=== PATIENT | female | born 1970 | race Caucasian/White ===

== ENCOUNTER 2016-09-22 19:45 | Emergency (ER) | payer OTHER ==
--- NOTE | 2016-09-22 19:53 | PDOC ---
History of Present Illness - History of Present Illness Initial Comments: 09/22/16 20:14 The patient is a 46 year old female with a past medical hx of hypothyroidism and hypertension who presents to the ED complaining of pain to her right elbow for 1 week. The patient reports she slipped and fell down the stairs one week ago. She landed on her right elbow. She denies any radiation of pain, numbness, or tingling to her right upper extremity. She has no further complaints at this time. Pgu not done as patient reports there is no possible way she could be . PAST SURGICAL HISTORY: no significant history FAMILY HISTORY: no pertinent history MEDICATIONS: reviewed ALLERGIES: As per nursing notes Musculoskeletal: +Right elbow pain. Neurologic: No paresthesias GENERAL: The patient is awake, alert, and fully oriented, in no acute distress. HEAD: Normal with no signs of trauma. EXTREMITIES: +Tenderness to palpation over the lateral portion of the right elbow with swelling and decreased range of motion secondary to pain. Neurovascularly intact. NEUROLOGICAL: Normal speech, normal gait. PSYCH: Normal mood, normal affect. SKIN: Warm, Dry, normal turgor, no rashes or lesions noted. <Conchita Mukherjee - Last Filed: 09/22/16 20:14> - General History Source: Patient Exam Limitations: No Limitations - History of Present Illness Initial Comments: 09/22/16 21:06 A portion of this note was documented by scribe services under my direction. I have reviewed the details of the note, within reason, and agree with the documentation. The case summary and management plan written by me. X-rays right elbow: Radial head fracture Right wrist no acute pathology or fracture Procedure note OCL splint OCL posterior elbow splint was applied, patient was given sling, neurovascular post splint application was intact Assessment and plan: This is a 46-year-old female who comes in complaining of right elbow pain Patient had an x-ray that showed a radial head fracture Patient was put in a splint and the given a sling Patient given Toradol for pain Patient given or they'll follow up Patient discharged home. <William Allen I - Last Filed: 09/22/16 21:12> - General Chief Complaint: Injury Stated Complaint: FELL DOWN STAIRS ONE WEEK AGO INJURY TO RIGHT ELBO Time Seen by Provider: 09/22/16 19:52 Past History <Conchita Mukherjee - Last Filed: 09/22/16 20:14> - Past Medical History Anemia: Yes (h/o with iv iron) Asthma: No Cancer: No Cardiac Disorders: No CVA: No COPD: No CHF: No Dementia: No Diabetes: No GI Disorders: No Disorders: No HTN: Yes Hypercholesterolemia: No Liver Disease: No Seizures: No Thyroid Disease: Yes (hypo) - Surgical History Abdominal Surgery: No Cardiac Surgery: No Cholecystectomy: Yes Lung Surgery: No Neurologic Surgery: No Orthopedic Surgery: (bursa sac right hip) - Immunization History Td Vaccination: Yes TDAP Vaccination: Yes Immunization Up to Date: Yes - Psycho/Social/Smoking Cessation Hx Anxiety: No Suicidal Ideation: Yes Smoking Status: No Smoking History: Former smoker Have you smoked in the past 12 months: No Number of Cigarettes Smoked Daily: 0 If you are a former smoker, when did you quit?: '98 'Breaking Loose' booklet given: 02/28/15 Hx Alcohol Use: Yes (SOCIALLY) Drug/Substance Use Hx: No Substance Use Type: Alcohol Hx Substance Use Treatment: No <William Allen I - Last Filed: 09/22/16 21:12> - Past Medical History Allergies/Adverse Reactions: Allergies Allergy/AdvReac Type Severity Reaction Status Date / Time hydrocodone bitartrate Allergy Severe Difficulty Verified 09/22/16 19:47 [From Lortab] Breathing Home Medications: Ambulatory Orders Levothyroxine [Synthroid -] 150 mg PO DAILY 02/02/12 Bupropion HCl [Wellbutrin -] 100 mg PO DAILY 03/22/16 Clonazepam [Klonopin -] 0.25 mg PO BID PRN 03/22/16 Sertraline HCl [Zoloft] 100 mg PO DAILY 03/22/16 Atorvastatin Ca [Lipitor] 10 mg PO HS 09/22/16 Lisinopril 5 mg PO DAILY 09/22/16 *Physical Exam - Vital Signs Last Vital Signs Temp Pulse Resp BP Pulse Ox 98 F 86 14 166/91 100 09/22/16 19:51 09/22/16 19:51 09/22/16 19:51 09/22/16 19:51 09/22/16 19:51 <Conchita Mukherjee - Last Filed: 09/22/16 20:14> *DC/Admit/Observation/Transfer - Attestations Scribe Attestion: 09/22/16 20:15 Documentation prepared by Conchita Mukherjee, acting as manager medical for William Allen MD/DO. <Conchita Mukherjee - Last Filed: 09/22/16 20:14> - Discharge Dispostion Admit: No <William Allen I - Last Filed: 09/22/16 21:12> Diagnosis at time of Disposition: Fracture of right elbow Qualifiers: Fracture type: closed - Discharge Dispostion Disposition: HOME Condition at time of disposition: Stable - Referrals Referrals: Meka Pritchard MD [Primary Care Provider] - - Patient Instructions Printed Discharge Instructions: How to Use a Sling Additional Instructions: Wear the sling while awake U do not need to wear it in bed at night Leave the splint on until you see an orthopedist. For the pain take Naprosyn 2 tablets twice a day with food don't take on an empty stomach If he needed an orthopedist call her Dr. Betancourt at [phone] in the morning for an appointment. Return to the emergency department immediately with ANY new, persistent or worsening symptoms. Continue any medications as previously prescribed by your physician. You should follow up with your primary doctor as soon as possible regarding today's emergency department visit. . Please make sure your doctor reviews the results of your emergency evaluation. Thank you for coming to the Emergency Department today for your care. It was a pleasure to see you today. Please note that your evaluation is INCOMPLETE until you follow-up with your doctor. - Post Discharge Activity Work/School Note: Back to Work
[2016-09-22 19:58] VITALS: BP 166/91; PULSE 86; TEMP 98; BMI 29.0
[2016-09-22] MEDS ORDERED: KETOROLAC TROMETHAMINE 60 MG/2 ML VIAL ONE (21:09)
[2016-09-22] MEDS ORDERED: KETOROLAC TROMETHAMINE 60 MG/2 ML VIAL IM ONE (21:12)
== END 2016-09-22 21:18 | disposition home or self-care (01) ==
LOC: FER 19:45
PROC: 3E0233Z Introduction of Anti-inflammatory into Muscle, Percutaneous Approach (ICD-10-PCS; principal; 2016-09-22)
PROC: 2W3AX1Z Immobilization of Right Upper Arm using Splint (ICD-10-PCS; 2016-09-22)
DX: S52.124A Nondisplaced fracture of head of right radius, initial encounter for closed fracture (principal); W11.XXXA Fall on and from ladder, initial encounter; Y93.89 Activity, other specified; Y92.9 Unspecified place or not applicable; Z87.891 Personal history of nicotine dependence; E03.9 Hypothyroidism, unspecified; I10 Essential (primary) hypertension
CPT/HCPCS: 29125; 73070-TC-RT; 73110-TC-RT; 96372; 99281-25

== ENCOUNTER 2017-03-10 21:17 | Emergency (ER) | payer OTHER ==
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
[2017-03-10 21:41] VITALS: BP 165/90; PULSE 87; TEMP 97.8; BMI 29.0
[2017-03-10] MEDS ORDERED: AMOX TR/POT CLAV 875MG/125MG TABLETS (FP) PO ONE (21:49)
[2017-03-10] MEDS ORDERED: AMOX TR/POT CLAV 875MG/125MG TABLETS (FP) ONE (21:55)
== END 2017-03-10 22:01 | disposition home or self-care (01) ==
LOC: FER 21:17
DX: S61.451A Open bite of right hand, initial encounter (principal); W55.03XA Scratched by cat, initial encounter; Y93.89 Activity, other specified; Y92.9 Unspecified place or not applicable; E03.9 Hypothyroidism, unspecified; D64.9 Anemia, unspecified; I10 Essential (primary) hypertension; Z87.891 Personal history of nicotine dependence
CPT/HCPCS: 99282-25

== ENCOUNTER 2017-03-11 15:14 | Emergency (ER) | payer OTHER ==
--- NOTE | 2017-03-11 15:18 | PDOC ---
History of Present Illness - General History Source: Patient Exam Limitations: No Limitations - History of Present Illness Initial Comments: 03/11/17 15:33 46 y/o F with no significant PMHx presents to the ED with multiple scratches and bites on her right forearm from yesterday. Patient reports she was pulling her cats apart when one of her cats attacked her. She came to the ER last night after the incident and was discharged with Augmentin. She presents today for the same issue, stating that her forearm is still painful and swollen from the scratches and bites. She went to fill her prescription today, but her insurance did not cover it so she opted out of filling it. She has not taken a dose of antibiotics since last night. She reports both cats are up to date on all immunizations. Denies fever, chills. Denies chest pain, SOB. Denies numbness, tingling. Denies any other complaints. Denies history of cellulitis or abscesses. Denies history of MRSA. Patient is up to date on Tetanus. <Marilyn Ibanez - Last Filed: 03/11/17 15:37> <Endy Baker - Last Filed: 03/11/17 15:40> - General Chief Complaint: Redness To Affected Area Stated Complaint: REVISIT RIGHT FOREARM CAT BITE Time Seen by Provider: 03/11/17 15:18 Past History <Marilyn Ibanez - Last Filed: 03/11/17 15:37> - Past Medical History Anemia: Yes (h/o with iv iron) Asthma: No Cancer: No Cardiac Disorders: No CVA: No COPD: No CHF: No Dementia: No Diabetes: No GI Disorders: No Disorders: No HTN: Yes Hypercholesterolemia: No Liver Disease: No Seizures: No Thyroid Disease: Yes (hypo) - Surgical History Abdominal Surgery: No Cardiac Surgery: No Cholecystectomy: Yes Lung Surgery: No Neurologic Surgery: No Orthopedic Surgery: (bursa sac right hip) - Immunization History Td Vaccination: Yes TDAP Vaccination: Yes Immunization Up to Date: Yes - Suicide/Smoking/Psychosocial Hx Smoking Status: No Smoking History: Former smoker Have you smoked in the past 12 months: No Number of Cigarettes Smoked Daily: 0 If you are a former smoker, when did you quit?: '98 'Breaking Loose' booklet given: 02/28/15 Hx Alcohol Use: Yes (SOCIALLY) Drug/Substance Use Hx: No Substance Use Type: Alcohol Hx Substance Use Treatment: No <Endy Baker - Last Filed: 03/11/17 15:40> - Past Medical History Allergies/Adverse Reactions: Allergies Allergy/AdvReac Type Severity Reaction Status Date / Time hydrocodone bitartrate Allergy Severe Difficulty Verified 03/11/17 15:14 [From Lortab] Breathing Home Medications: Ambulatory Orders Levothyroxine [Synthroid -] 150 mg PO DAILY 02/02/12 Amox-Tr/K Cl [Augmentin - 875Mg Tablet] 1 tab PO BID #14 tablet 03/10/17 Review of Systems - Review of Systems Able to Perform ROS?: Yes Comments:: 03/11/17 15:33 GENERAL/CONSTITUTIONAL: No fever or chills. No weakness. HEAD, EYES, EARS, NOSE AND THROAT: No change in vision. No ear pain or discharge. No sore throat. CARDIOVASCULAR: No chest pain or shortness of breath. RESPIRATORY: No cough, wheezing, or hemoptysis. GASTROINTESTINAL: No nausea, vomiting, diarrhea or constipation. GENITOURINARY: No dysuria, frequency, or change in urination. MUSCULOSKELETAL: No joint or muscle swelling or pain. No neck or back pain. SKIN: (+) multiple scratch harp on her right arm, with pain and swelling. NEUROLOGIC: No headache, vertigo, loss of consciousness, or change in strength/ sensation. ENDOCRINE: No increased thirst. No abnormal weight change. HEMATOLOGIC/LYMPHATIC: No anemia, easy bleeding, or history of blood clots. ALLERGIC/IMMUNOLOGIC: No hives or skin allergy. <Marilyn Ibanez - Last Filed: 03/11/17 15:37> *Physical Exam - Vital Signs Last Vital Signs Temp Pulse Resp BP Pulse Ox 98.5 F 92 H 18 153/94 98 03/11/17 15:15 03/11/17 15:15 03/11/17 15:15 03/11/17 15:15 03/11/17 15:15 - Physical Exam Comments: 03/11/17 15:34 GENERAL: Awake, alert, and fully oriented, in no acute distress HEAD: No signs of trauma EYES: PERRLA, EOMI, sclera anicteric, conjunctiva clear ENT: Auricles normal inspection, hearing grossly normal, nares patent, oropharynx clear without exudates. Moist mucosa NECK: Normal ROM, supple, no lymphadenopathy, JVD, or masses LUNGS: Breath sounds equal, clear to auscultation bilaterally. No wheezes, and no crackles HEART: Regular rate and rhythm, normal S1 and S2, no murmurs, rubs or gallops ABDOMEN: Soft, nontender, normoactive bowel sounds. No guarding, no rebound. No masses EXTREMITIES: Right arm is erythematous. Multiple scratch harp on right arm. Swollen but good pulses. Opposition is intact and no signs of a septic joint. Normal range of motion. No clubbing or cyanosis. No cords. NEUROLOGICAL: Cranial nerves II through XII grossly intact. Normal speech, normal gait SKIN: Warm, Dry, normal turgor, no rashes or lesions noted. <Marilyn Ibanez - Last Filed: 03/11/17 15:37> Progress Note - Progress Note Progress Note: Pt with cellulitis to right forearm from cat bite/scratches. Seen last night. Took only one dose of Augmentin. No sign of a septic joint Will discharge home with follow up with PMD <Endy Baker - Last Filed: 03/11/17 15:40> *DC/Admit/Observation/Transfer - Attestations Scribe Attestion: 03/11/17 15:34 Documentation prepared by Marilyn Ibanez, acting as medical coder for Endy Baker MD. <Marilyn Ibanez - Last Filed: 03/11/17 15:37> - Discharge Dispostion Admit: No <Endy Baker - Last Filed: 03/11/17 15:40> Diagnosis at time of Disposition: Cellulitis of right forearm - Discharge Dispostion Disposition: HOME Condition at time of disposition: Stable - Referrals Referrals: Meka Pritchard MD [Primary Care Provider] - - Patient Instructions Printed Discharge Instructions: DI for Cellulitis -- Adult Additional Instructions: Warm compress to area Motrin as needed for pain Continue Augmentin 875 mg 2x/day for 7 days If worsen return to ER for IV antibiotics
[2017-03-11 15:19] VITALS: BP 153/94; PULSE 92; TEMP 98.5; BMI 29.0
[2017-03-11] MEDS ORDERED: AMOX TR/POT CLAV 875MG/125MG TABLETS (FP) PO ONE (15:31)
[2017-03-11] MEDS ORDERED: AMOX TR/POT CLAV 875MG/125MG TABLETS (FP) ONE (15:34)
== END 2017-03-11 15:45 | disposition home or self-care (01) ==
LOC: FER 15:14
DX: L03.113 Cellulitis of right upper limb (principal); I10 Essential (primary) hypertension; Z87.891 Personal history of nicotine dependence; X58.XXXA Exposure to other specified factors, initial encounter; Y93.89 Activity, other specified; Y92.9 Unspecified place or not applicable
CPT/HCPCS: 99282-25

== ENCOUNTER 2018-09-13 14:24 | Emergency (ER) | payer OTHER ==
--- NOTE | 2018-09-13 14:32 | PDOC ---
History of Present Illness - General Chief Complaint: Chest Pain Stated Complaint: CHEST PAIN Time Seen by Provider: 09/13/18 14:32 - History of Present Illness Initial Comments: 09/13/18 16:09 48F with h/o of anemia, smoker, hypothyroid on Synthroid presents numbness over both hands worse and going up the arm on the left side, and feeling of constant pressure over her general chest associated with general fatigue. The numbness started this morning whereas the chest pressure has been going on for a couple of days. The chest pressure is mild and she denies sob or pain per se. Patient had a stress test several years ago that was normal, at baseline has no exercise limitations climbs a flight of stairs at least once a day to get to her apartment, has had no change in her ability to do so. No recent PE risk factors or symptoms of DVT, no family history of hypercoagulable states. \ Past History - Past Medical History Allergies/Adverse Reactions: Allergies Allergy/AdvReac Type Severity Reaction Status Date / Time hydrocodone bitartrate Allergy Severe Difficulty Verified 09/13/18 14:27 [From Lortab] Breathing Home Medications: Ambulatory Orders Levothyroxine [Synthroid -] 150 mg PO DAILY 02/02/12 Anemia: Yes (h/o with iv iron) Asthma: No Cancer: No Cardiac Disorders: No CVA: No COPD: No CHF: No Dementia: No Diabetes: No GI Disorders: No Disorders: No HTN: Yes Hypercholesterolemia: No Liver Disease: No Seizures: No Thyroid Disease: Yes (hypo) - Surgical History Abdominal Surgery: No Cardiac Surgery: No Cholecystectomy: Yes Lung Surgery: No Neurologic Surgery: No Orthopedic Surgery: (bursa sac right hip) - Immunization History Td Vaccination: Yes TDAP Vaccination: Yes Immunization Up to Date: Yes - Suicide/Smoking/Psychosocial Hx Smoking Status: No Smoking History: Former smoker Have you smoked in the past 12 months: No Number of Cigarettes Smoked Daily: 0 If you are a former smoker, when did you quit?: '98 'Breaking Loose' booklet given: 03/11/17 Hx Alcohol Use: Yes (SOCIALLY) Drug/Substance Use Hx: No Substance Use Type: Alcohol Hx Substance Use Treatment: No Cardiac Specific PMH - Complaint Specific PMHX GERD: No Pacemaker: No Review of Systems - Review of Systems Able to Perform ROS?: Yes Is the patient limited [place] proficient: No Constitutional: No: Symptoms Reported HEENTM: No: Symptoms Reported Respiratory: Yes: See HPI Cardiac (ROS): Yes: See HPI ABD/GI: No: Symptoms Reported : No: Symptoms Reported Musculoskeletal: No: Symptoms Reported Integumentary: No: Symptoms Reported Neurological: No: Symptoms reported All Other Systems: Reviewed and Negative *Physical Exam - Vital Signs Last Vital Signs Temp Pulse Resp BP Pulse Ox 97.8 F 65 18 158/94 99 09/13/18 14:24 09/13/18 14:24 09/13/18 14:24 09/13/18 14:24 09/13/18 14:24 - Physical Exam General Appearance: Yes: Nourished, Appropriately Dressed. No: Apparent Distress HEENT: positive: EOMI, AMOS, Normal ENT Inspection Respiratory/Chest: positive: Lungs Clear, Normal Breath Sounds. negative: Chest Tender, Respiratory Distress Cardiovascular: positive: Regular Rhythm, Regular Rate, S1, S2 Gastrointestinal/Abdominal: positive: Normal Bowel Sounds, Flat, Soft. negative : Tender Extremity: positive: Other (Positive Tinnel's sign in both hand) Integumentary: positive: Other (numerous scratches and bites which she got from playing with her 5 cats. ) Neurologic: positive: Fully Oriented, Alert, Normal Mood/Affect ED Treatment Course - LABORATORY CBC & Chemistry Diagram: 09/13/18 15:10 09/13/18 15:10 - ADDITIONAL ORDERS Additional order review: Laboratory Results 09/13/18 09/13/18 15:10 15:10 Sodium 138 Potassium 5.2 H Chloride 103 Carbon Dioxide 29 Anion Gap 6 L BUN 16 Creatinine 0.9 Creat Clearance w eGFR 66.83 Random Glucose 104 Calcium 9.1 Total Bilirubin 0.6 AST 24 ALT 25 Alkaline Phosphatase 95 Troponin I < 0.03 Total Protein 7.2 Albumin 4.2 09/13/18 15:10 RBC 5.05 MCV 82.2 MCHC 31.9 L RDW 13.6 MPV 7.8 Neutrophils % 68.0 Lymphocytes % 19.7 Monocytes % 9.9 Eosinophils % 1.7 Basophils % 0.7 Medical Decision Making - Medical Decision Making 09/13/18 16:54 48f with symptoms of fatigue, chest pressure and upper extremity parasthesia. - Carpal tunnel syndrome likeliest diagnosis due to positive tinnel's sign, h/ o hypothyroidism. - Will r/o ACS with trops and ekg. - hypothyroidism probably explains fatigue and carpal tunnel. Acs workup negative. Spoke to Dr. Srinivasan who will see the patient tomorrow in his office. *DC/Admit/Observation/Transfer Diagnosis at time of Disposition: Carpal tunnel syndrome - Discharge Dispostion Disposition: HOME Condition at time of disposition: Stable Decision to Admit order: No - Referrals Referrals: Meka Pritchard MD [Primary Care Provider] - Jeffrey Burciaga MD [Staff Physician] - Danny Srinivasan MD [Staff Physician] - - Patient Instructions Printed Discharge Instructions: Carpal Tunnel Syndrome Additional Instructions: Follow up with Dr. Srinivasan tomorrow at his office. Follow up with Dr. Burciaga, hand surgeon, symptoms in your hand don't resolve. Come back to the ER for any new, worsening or concerning symptoms. - Post Discharge Activity
[2018-09-13 14:34] VITALS: TEMP 97.8; BMI 31.4
[2018-09-13 15:35] LABS: BASO % 0.7 % (0-2.0); EOS % 1.7 % (0-4.5); HEMATOCRIT 41.5 % (32.4-45.2); HEMOGLOBIN 13.3 GM/dl (10.7-15.3); LYMPH % 19.7 % (8-40); MCH 26.3 pg (25.7-33.7); MCHC 31.9 g/dl (32.0-36.0); MEAN CELL VOLUME 82.2 fl (80-96); MEAN PLT VOLUME 7.8 fl (7.5-11.1); MONO % 9.9 % (3.8-10.2); PLATELET COUNT 193 K/MM3 (134-434); RBC 5.05 M/mm3 (3.60-5.2); RDW 13.6 % (11.6-15.6); WHITE BLOOD COUNT 6.6 K/mm3 (4.0-10.8)
[2018-09-13 15:43] LABS: ALBUMIN 4.2 g/dl (3.4-5.0); ALK PHOS 95 U/L (45-117); ANION GAP 6 MMOL/L (8-16); BILIRUBIN,TOTAL 0.6 mg/dl (0.2-1); BLOOD UREA NITROGEN 16 mg/dl (7-18); CALCIUM 9.1 mg/dl (8.5-10); CHLORIDE 103 mmol/L (98-107); CO2 29 mmol/L (21-32); CREATININE 0.9 mg/dl (0.55-1.3); GLUCOSE,RANDOM 104 mg/dl (74-106); POTASSIUM 5.2 mmol/L (3.5-5.1); SGOT/AST 24 U/L (15-37); SGPT/ALT 25 U/L (13-61); SODIUM 138 mmol/L (136-145); TOT PROT 7.2 g/dl (6.4-8.2)
--- NOTE | 2018-09-13 15:49 | PDOC ---
Attending Attestation - Resident Resident Name: Riley Lancaster - ED Attending Attestation I have performed the following: I have examined & evaluated the patient, The case was reviewed & discussed with the resident, I agree w/resident's findings & plan - HPI HPI: 09/13/18 15:44 48-year-old female with history of hypertension in the past, anemia with h/o iron infusions but never transfused, now off medications, smoker, hypothyroid on Synthroid presents with constellation of symptoms over the last few days. Most acutely, patient awoke this morning and noted bilateral hand/forearm tingling and discomfort, the left hand symptoms radiated to her left bicep. Patient also with 2 days of ongoing and constant chest pressure, very mild and not associated with any shortness of breath or dyspnea on exertion or palpitations, not relieved or worsened by exertion, has chronic cough but no acute change and no fevers or chills. Patient read about association of left arm symptoms with chest pain so she presents for evaluation to rule out cardiac etiology. Patient had a stress test several years ago that was normal, at baseline has no exercise limitations climbs a flight of stairs at least once a day to get to her apartment, has had no change in her ability to do so. No recent PE risk factors or symptoms of DVT, no family history of hypercoagulable states. - Physicial Exam PE: 09/13/18 15:46 Vital signs are normal, BP slightly elevated Patient is well-appearing seated in stretcher, smiling and comfortable and speaking full sentences No jaundice or pallor No JVD Heart is regular without murmur, lungs are clear Abdomen is benign No lower extremity edema or calf tenderness. Wrist/hand symptoms are reproducible with Tinel's test, neurovascularly intact - Medical Decision Making 09/13/18 15:48 48y/o F h/o HTN untreated, smoking p/w atypical chest pain constant for 2d without exertional component, low suspicion for ACS and no PE risk factors, clinically rules out. Musculoskeletal complaints consistent with carpal tunnel, nvi. labs including one troponin - in light of 2d constant sxs, this will have good specificity. EKG normal CXR if above wnl, pt is low risk per heart score and can f/u with Dr. Fnoseca for outpt stress testing. Will give referral to hand surgeon as well. 09/13/18 16:50 normal Hgb, trop negative, cxr normal. tsh pending, discuss with Dr. fonseca 09/13/18 17:00 d/w Dr. Fonseca, agrees with workup and d/c plan. He can see her in the office tomorrow and arrange stress testing. States thyroid studies from 08/11 show some hypothyroidism so he may adjust her meds at the visit. Pt agrees with plan, understands return criteria. Heart Score/ECG Review - History History: Slightly suspicious - Electrocardiogram EKG: Normal - Age Age: 45-65 - Risk Factors Based on the list above the patient has:: 1-2 risk factors - Troponin Troponin: </= normal limit - Score Heart Score - Total: 2 #1 ECG reviewed & interpreted by me at: 14:41 General ECG Interpretation: Sinus Rhythm, Normal Rate (66), Normal Intervals ( qtc 448), No acute ischemic changes Compared to previous ECG there are: No significant change (c/w 02/12)
[2018-09-13 17:42] VITALS: BP 131/69; PULSE 71
--- NOTE | 2018-09-14 12:24 | EKG ---
Test Reason : Blood Pressure : / mmHG Vent. Rate : 066 BPM Atrial Rate : 066 BPM P-R Int : 152 ms QRS Dur : 098 ms QT Int : 428 ms P-R-T Axes : 062 004 048 degrees QTc Int : 448 ms NORMAL SINUS RHYTHM NORMAL ECG WHEN COMPARED WITH ECG OF 02-FEB-2012 12:01, NO SIGNIFICANT CHANGE WAS FOUND Confirmed by ARLETTE LEON MD ([id number]) on 09/14/2018 12:23:51 PM Referred By: FABIAN ORTIZ Confirmed By:ARLETTE LEON MD
== END 2018-09-13 17:32 | disposition home or self-care (01) ==
LOC: FER 14:24
DX: G56.00 Carpal tunnel syndrome, unspecified upper limb (principal); Z87.891 Personal history of nicotine dependence; E03.9 Hypothyroidism, unspecified; I10 Essential (primary) hypertension
CPT/HCPCS: 36415; 71045-TC-FY; 80053; 84443; 84484; 85025; 93005; 99285-25

== ENCOUNTER 2020-10-24 09:36 | Emergency (ER) | payer OTHER ==
[2020-10-24 09:50] VITALS: TEMP 98.1; BMI 29.0
[2020-10-24] MEDS ORDERED: SODIUM CHLORIDE 1,000 ML IV STA (09:59)
[2020-10-24 10:53] LABS: BASO % 0.4 % (0-2.0); EOS % 1.2 % (0-4.5); HEMOGLOBIN 13.9 GM/dl (10.7-15.3); LYMPH % 8.3 % (8-40); MCH 26.7 pg (25.7-33.7); MEAN CELL VOLUME 78.5 fl (80-96); MEAN PLT VOLUME 7.8 fl (7.5-11.1); MONO % 7.9 % (3.8-10.2); NEUT % 82.2 % (42.8-82.8); PLATELET COUNT 175 K/MM3 (134-434); RBC 5.23 M/mm3 (3.60-5.2); RDW 12.7 % (11.6-15.6); WHITE BLOOD COUNT 8.6 K/mm3 (4.0-10.8)
[2020-10-24 12:04] LABS: CHLORIDE 104 mmol/L (98-107); SODIUM 139 mmol/L (136-145)
[2020-10-24 12:06] LABS: ANION GAP 6 MMOL/L (8-16); BLOOD UREA NITROGEN 16.8 mg/dL (7-18); CALCIUM 8.9 mg/dL (8.5-10.1); CO2 30 mmol/L (21-32)
[2020-10-24 12:07] LABS: ALBUMIN 4.1 g/dl (3.4-5.0); GLUCOSE,RANDOM 123 mg/dL (74-106); MAGNESIUM 2.1 mg/dL (1.8-2.4)
[2020-10-24 12:09] LABS: SGPT/ALT 43 U/L (13-61)
[2020-10-24 12:10] LABS: CREATININE 0.8 mg/dL (0.55-1.3); SGOT/AST 19 U/L (15-37)
[2020-10-24 12:11] LABS: BILIRUBIN,TOTAL 0.3 mg/dL (0.2-1); TOT PROT 7.2 g/dl (6.4-8.2)
[2020-10-24 12:12] LABS: ALK PHOS 118 U/L (45-117)
[2020-10-24 14:06] VITALS: BP 131/81; PULSE 62
== END 2020-10-24 14:01 | disposition home or self-care (01) ==
LOC: FER 09:36
DX: R55 Syncope and collapse (principal)
CPT/HCPCS: 36415; 80053; 83735; 84439; 84443; 84484; 85025; 93005; 99284-25

== ENCOUNTER 2021-05-28 18:35 | Emergency (ER) | payer OTHER ==
[2021-05-28 19:02] VITALS: BP 158/91; PULSE 89; TEMP 99.7; BMI 29.8
[2021-05-29 20:07] LABS: SARS-CoV-2 NAA Not Detected (Not Detected)
== END 2021-05-28 19:06 | disposition home or self-care (01) ==
LOC: FER 18:35
DX: J20.9 Acute bronchitis, unspecified (principal)
CPT/HCPCS: 99284-25; C9803-CS; U0003; U0005

== ENCOUNTER 2021-06-01 15:09 | Emergency (ER) | payer OTHER ==
[2021-06-01 15:23] VITALS: BP 153/80; PULSE 64; TEMP 97.9; BMI 23.1
[2021-06-01] MEDS ORDERED: guaiFENesin 600 MG TABLET.ER (FP) PO ONE ×2 (15:30→15:31)
[2021-06-01] MEDS ORDERED: ALBUTEROL SO4 HFA INHALER IH ONE ×2 (15:30→15:31)
[2021-06-01] MEDS ORDERED: guaiFENesin 600 MG TABLET.ER (FP) PO SCH (22:00)
[2021-06-02 21:09] LABS: SARS-CoV-2 NAA Not Detected (Not Detected)
== END 2021-06-01 16:27 | disposition home or self-care (01) ==
LOC: FER 15:09
PROC: 3E0F7GC Introduction of Other Therapeutic Substance into Respiratory Tract, Via Natural or Artificial Opening (ICD-10-PCS; principal; 2021-06-01)
DX: J06.9 Acute upper respiratory infection, unspecified (principal)
CPT/HCPCS: 71045-TC-FY; 99284-25; C9803; U0003; U0005

== ENCOUNTER 2024-09-25 21:45 | Emergency (ER) | payer OTHER ==
[2024-09-25 21:58] VITALS: BP 178/86; PULSE 83; RESP 18; TEMP 97.5; BMI 31.4
[2024-09-25] MEDS ORDERED: KETOROLAC TROMETHAMINE 60 MG/2 ML VIAL ONE (22:46)
[2024-09-25] MEDS ORDERED: CycloBENZAprine HCL 5 MG TABLET ONE (22:46)
[2024-09-25] MEDS: CycloBENZAprine HCL 10 MG TABLET (FP) PO ONE (22:57)
[2024-09-25] MEDS: KETOROLAC TROMETHAMINE 60 MG/2 ML VIAL IM ONE (23:22)
== END 2024-09-25 23:43 | disposition home or self-care (01) ==
LOC: FER 21:45
DX: G62.9 Polyneuropathy, unspecified (principal); M54.50 Low back pain, unspecified
CPT/HCPCS: 73502-TC-LT-FY; 99283-25